=== PATIENT | male | born 1995 | race African-American/Black ===

== ENCOUNTER 2017-01-02 21:16 | Emergency (ER) | payer SELFPAY ==
[~2017-01-02] VITALS: Ht 172.7 cm; Wt 129.5 kg
[~2017-01-02 21:16] MED LIST: DOXY100T PO
[2017-01-02 21:18] VITALS: BP 154/88; PULSE 84; RESP 16; TEMP 98.5; O2SAT 99
[2017-01-03 00:16] VITALS: BP 176/107; PULSE 93; RESP 16; O2SAT 100
[2017-01-03 00:23] VITALS: BP 159/93; PULSE 78; RESP 16; O2SAT 100
--- NOTE | 2017-01-03 00:27 | PD ---
HPI Chief Complaint: Abdominal Pain Time Seen by Provider: 00:22 Travel History International Travel<30 days: No Contact w/Intl Traveler<30days: No Traveled to known affect area: No History of Present Illness HPI The patient is a 21 year old male who presents to the [facility] emergency department with a history of abdominal pain that began on Tuesday. It is in bilateral lower quadrants of the abdomen. It is brought on by eating. It comes on 30-40 minutes after eating. He has intermittent nausea with one episode of vomiting. His last BM was on Tuesday. No blood in the stool. He has pressure with urinating and urinary frequency. He denies any urinary urgency. The patient reports that he is sexually active. He reports that he has been with the same partner for the last 3 years. He denies using condoms. He denies having any penile discharge. He reports that on Tuesday he did have some testicle pain in the back of the left testicle. He denies having any swelling of the scrotum. He reports that yesterday he did notice a bump on the glans of the penis, however it is nonpainful. The patient denies any history of recent fevers, cough, congestion, neck pain, chest pain, shortness of breath, diarrhea , or neurologic symptoms. [facility] Past Medical History Narrative Medical the patient's past medical history is significant for asthma in childhood. Asthma: Yes (CHILDHOOD) Autoimmune Disease: No Blood Disorders: No Anxiety: No Depression: No Cardiovascular Problems: No Diminished Hearing: No Genitourinary: No Musculoskeletal: No Neurologic: No Psychiatric: No Respiratory: No Sickle Cell Disease: No Past Surgical History Narrative Surgical The patient's past surgical history is significant for tonsillectomy and adenoidectomy. Abdominal Surgery: No Cardiac Surgery: No Ear Surgery: No Endocrine Surgery: No Eye Surgery: No Genitourinary Surgery: No Gynecologic Surgery: No Neurologic Surgery: No Oral Surgery: No Thoracic Surgery: No Tonsillectomy: Yes (T&A) Social History Alcohol Use: Yes (rarely) Tobacco Use: No Substance Use: No Allergies-Medications (Allergen,Severity, Reaction): Coded Allergies: cephalexin (Verified Allergy, Intermediate, Hives, 01/02/17) Reported Meds & Prescriptions Reported Meds & Active Scripts Active Ibuprofen 600 Mg Tab 600 Mg PO Q8HR PRN Doxycycline Hyclate 100 Mg Cap 100 Mg PO BID Review of Systems Except as stated in HPI: all other systems reviewed are Neg General / Constitutional: No: Fever Eyes: No: Visual changes HENT: No: Headaches Cardiovascular: No: Chest Pain or Discomfort Respiratory: No: Shortness of Breath Gastrointestinal: Positive: Nausea, Abdominal Pain, No: Vomiting, Diarrhea, Changes in Bowel Habits, Indigestion, Loss of Appetite Genitourinary: Positive: Frequency, Dysuria, No: Urgency Musculoskeletal: No: Pain Skin: Positive Rash Neurologic: No: Weakness Psychiatric: No: Depression Endocrine: No: Polydipsia Hematologic/Lymphatic: No: Easy Bruising Physical Exam Narrative General: The patient is a well-developed well-nourished male in no acute distress. Head and Neck exam: Head is normocephalic atraumatic. Eyes: EOMI, pupils are equal round and reactive to light. Nose: Midline septum with pink mucous membranes Mouth: Dentition unremarkable. Moist mucus membranes. Posterior oropharynx is not erythematous. No tonsillar hypertrophy. Uvula midline. Airway patent. Neck: No palpable lymphadenopathy. No nuchal rigidity. No thyromegaly. Cardiovascular: Regular rate and rhythm without murmurs, gallops, or rubs. Lungs: Clear to auscultation bilaterally. No wheezes, rhonchi, or rales. Abdomen: Soft, with reported tenderness on palpation of the suprapubic area, no other tenderness on palpation of the other quadrants of the abdomen. Normal bowel sounds are audible. No tenderness on palpation of McBurney's point. No guarding, rebound, or rigidity. Negative Egan sign. Extremities: No clubbing, cyanosis, or edema. 2+ pulses in all 4 extremities. No calf tenderness on palpation. Back: No spinous process tenderness to palpation. No costovertebral angle tenderness to palpation. Neurologic Exam: Grossly nonfocal. Skin Exam: No rash noted. Intact skin that is warm and dry. Genital exam: The patient is a circumcised male. With a single area that is approximately 2 mm in greatest dimension a superficial ulceration overlying to dorsal aspect of the glans penis. No penile discharge. No swelling on examination. The patient does however have reported tenderness on palpation overlying the posterior aspect of the left testicle overlying the epididymis. No palpable testicle masses. No palpable hernia. Data Data Last Documented VS Vital Signs Date Time Temp Pulse Resp B/P (MAP) Pulse Ox O2 Delivery O2 Flow Rate FiO2 01/03/17 03:08 01/03/17 00:23 78 16 100 Room Air 01/02/17 21:18 98.5 Orders Orders Complete Blood Count With Diff (01/03/17 00:22) Comprehensive Metabolic Panel (01/03/17 00:22) Urinalysis - C+S If Indicated (01/03/17 00:22) Iv Access Insert/Monitor (01/03/17 00:22) Oxygen Administration (01/03/17:22) Oximetry (01/03/17 00:22) Lipase (01/03/17 00:22) Gc And Chlamydia Pcr (01/03/17 00:25) Ct Abd/Pel W/O Iv Contrast (01/03/17 00:40) Us Testicles W Doppler (01/03/17 00:40) Sodium Chlor 0.9% 1000 Ml Inj (Ns 1000 M (01/03/17 00:45) Ketorolac Inj (Toradol Inj) (01/03/17 00:45) Ondansetron Inj (Zofran Inj) (01/03/17 00:45) Azithromycin Powd Pack (Zithromax Powd P (01/03/17 03:00) Doxycycline (Vibratab) (01/03/17 03:00) Labs Laboratory Tests Test 01/03/17 00:20 01/03/17 00:25 Urine Color YELLOW Urine Turbidity CLEAR Urine pH 5.5 Urine Specific [place] 1.027 Urine Protein TRACE mg/dL Urine Glucose (UA) NEG mg/dL Urine Ketones NEG mg/dL Urine Occult Blood NEG Urine Nitrite NEG Urine Bilirubin NEG Urine Urobilinogen 2.0 MG/DL Urine Leukocyte Esterase NEG Urine RBC LESS THAN 1 /hpf Urine WBC 1 /hpf Urine Mucus FEW /lpf Microscopic Urinalysis Comment CULT NOT INDICATED Chlamydia trachomatis DNA (PCR) NOT DETECTED Neisseria gonorrhoeae DNA (PCR) NOT DETECTED White Blood Count 12.0 TH/MM3 Red Blood Count 5.32 MIL/MM3 Hemoglobin 15.3 GM/DL Hematocrit 46.1 % Mean Corpuscular Volume 86.6 FL Mean Corpuscular Hemoglobin 28.7 PG Mean Corpuscular Hemoglobin Concent 33.2 % Red Cell Distribution Width 13.9 % Platelet Count 300 TH/MM3 Mean Platelet Volume 8.0 FL Neutrophils (%) (Auto) 51.6 % Lymphocytes (%) (Auto) 36.7 % Monocytes (%) (Auto) 8.7 % Eosinophils (%) (Auto) 2.0 % Basophils (%) (Auto) 1.0 % Neutrophils # (Auto) 6.2 TH/MM3 Lymphocytes # (Auto) 4.4 TH/MM3 Monocytes # (Auto) 1.0 TH/MM3 Eosinophils # (Auto) 0.2 TH/MM3 Basophils # (Auto) 0.1 TH/MM3 CBC Comment DIFF FINAL Differential Comment Blood Urea Nitrogen 13 MG/DL Creatinine 1.13 MG/DL Random Glucose 89 MG/DL Total Protein 8.1 GM/DL Albumin 3.9 GM/DL Calcium Level 9.2 MG/DL Alkaline Phosphatase 124 U/L Aspartate Amino Transf (AST/SGOT) 29 U/L Alanine Aminotransferase (ALT/SGPT) 50 U/L Total Bilirubin 0.5 MG/DL Sodium Level 140 MEQ/L Potassium Level 3.8 MEQ/L Chloride Level 106 MEQ/L Carbon Dioxide Level 27.7 MEQ/L Anion Gap 6 MEQ/L Estimat Glomerular Filtration Rate 97 ML/MIN Lipase 103 U/L [facility] Medical Decision Making Medical Screen Exam Complete: Yes Emergency Medical Condition: Yes Medical Record Reviewed: Yes Interpretation(s) Last Impressions Scrotum Ultrasound 01/03/1739 Signed Impressions: Service Date/Time: Tuesday, January 03, 2017 01:01 - CONCLUSION: No evidence of testicular mass or torsion Brennen Gold MD Abdomen/Pelvis CT 01/03/1739 Signed Impressions: Service Date/Time: Tuesday, January 03, 2017 02:03 - CONCLUSION: No acute CT findings in the abdomen or pelvis. Brennen Gold MD Differential Diagnosis Testicular torsion, versus epididymitis, versus gonorrhea, versus chlamydia, versus kidney stone Narrative Course During the course of the patients emergency department visit, the patients history, examination, and differential diagnosis were reviewed with the patient. The patient had IV access obtained and blood work sent for analysis. The patient was placed on a threat monitoring analyst with oximetry and blood pressure monitoring. An ultrasound of the testicles was ordered to rule out torsion, CT scan of the abdomen pelvis was ordered to evaluate for possible underlying kidney stone. The patient was initially provided Toradol 15 mg IV for pain, Zofran 4 mg IV for nausea, normal saline 1 L IV fluid bolus. Given the patient's elevated white blood cell count dysuria with unprotected sex, the patient was given 8 azithromycin 1 g by mouth 1, given his cephalexin allergy the patient was given doxycycline 100 mg by mouth. The patients laboratory studies were reviewed and remarkable for white count is 12, hemoglobin 15.3, platelets 300 with 8.7 monocytes, CMP is remarkable for an alkaline phosphatase of 124, lipase 103, urinalysis is unremarkable. GC and chlamydia are pending. Radiology studies were reviewed and remarkable for an ultrasound of the testicles reveals no evidence of testicular mass or torsion. CT scan of the abdomen and pelvis shows no evidence of stone or other acute abnormality. The patient's symptoms are most consistent with a mild case of epididymitis. The patient will be discharged home with a prescription for doxycycline. Patient is instructed to follow-up with the health Department for additional sexual transmitted infection testing. The patient is resting comfortably and feels better, is alert and in no distress. The patients results and examination findings were discussed with the patient. The repeat examination is unremarkable and benign. The history, exam, diagnostic testing, and current condition do not suggest any significant pathology to warrant further testing, continued ED treatment, admission, or surgical evaluation at this point. The vital signs have been stable. The patient does not have uncontrollable pain, intractable vomiting, or other significant symptoms. The patient's condition is stable and appropriate for discharge. The patient will pursue further outpatient evaluation with a primary care physician or other designated or consulting physician as indicated in the discharge instructions. The patient expressed understanding and was agreeable with this plan. Diagnosis Primary Impression: Epididymitis Referrals: [facility] Dept. 2 days Patient Instructions: Epididymitis (ED), General Instructions Additional Instructions: Follow-up with the [facility] Department for additional sexual transmitted infection testing. Scripts Ibuprofen (Ibuprofen) 600 Mg Tab 600 MG PO Q8HR Y for PAIN, #12 TAB 0 Refills Prov: Rena Allen MD 01/03/17 Doxycycline Hyclate (Doxycycline Hyclate) 100 Mg Cap 100 MG PO BID for Infection, #27 CAP 0 Refills Prov: Rena Allen MD 01/03/17 Disposition: 01 DISCHARGE HOME Condition: Stable Rena Allen MD Jan 03, 2017 00:27
[2017-01-03 00:37] LABS: AUTOMATED NEUTROPHIL # 6.2 TH/MM3 (1.8-7.7); BASOPHIL # 0.1 TH/MM3 (0-0.2); EOSINOPHIL # 0.2 TH/MM3 (0-0.4); HEMATOCRIT 46.1 % (39.0-51.0); HEMO FLAGS DIFF FINAL; LYMPH % 36.7 % (9.0-44.0); LYMPHOCYTE # 4.4 TH/MM3 (1.0-4.8); MEAN CELL VOLUME 86.6 FL (80.0-100.0); MEAN CORPUSCULAR HEMOGLOBIN 28.7 PG (27.0-34.0); MEAN CORPUSCULAR HGB CONC 33.2 % (32.0-36.0); MONO % 8.7 % (0.0-8.0); NEUT % 51.6 % (16.0-70.0); PLATELET COUNT 300 TH/MM3 (150-450); RED BLOOD COUNT 5.32 MIL/MM3 (4.50-5.90); RED CELL DISTRIBUTION WIDTH 13.9 % (11.6-17.2)
[2017-01-03 00:38] LABS: BLOOD, URINE NEG (NEG); COMMENT (UR) CULT NOT INDICATED; CULTURE IF INDICATED CULT NOT INDICATED; GLUCOSE,URINE NEG (NEG); KETONE, URINE NEG (NEG); MUCUS URINE FEW /lpf (OCC); NITRITE,URINE NEG (NEG); PH, URINE 5.5 (5.0-8.5); URINE COLOR YELLOW (YELLW/STRAW)
[2017-01-03] MEDS ORDERED: ONDANSETRON HCL 4 MG/2 ML VIAL IV PUSH ONE (00:45)
[2017-01-03] MEDS ORDERED: KETOROLAC TROMETHAMINE 30 MG/ML (IVP) VIAL IV PUSH ONE (00:45)
[2017-01-03] MEDS ORDERED: SODIUM CHLOR 0.9% 1000 ML INJ 1,000 ML IV ONE (00:45)
[2017-01-03 01:09] LABS: ALKALINE PHOSPHATASE 124 U/L (45-117); TOTAL BILIRUBIN ADULT 0.5 MG/DL (0.2-1.0)
[2017-01-03 01:11] LABS: ALT (GPT) 50 U/L (12-78); ANION GAP 6 MEQ/L (5-15); AST (GOT) 29 U/L (15-37); BICARBONATE 27.7 MEQ/L (21.0-32.0); BLOOD UREA NITROGEN 13 MG/DL (7-18); CHLORIDE 106 MEQ/L (98-107); GLOMERULAR FILTRATION RATE 97 ML/MIN (>89); POTASSIUM 3.8 MEQ/L (3.5-5.1); SODIUM (NA) 140 MEQ/L (136-145)
--- NOTE | 2017-01-03 01:36 | RADRPT ---
EXAM DATE/TIME: 01/03/2017 01:01 [facility] COMPARISON: No previous studies available for comparison. INDICATIONS : Testicular pain. MEDICAL HISTORY : Asthma. Testicular pain. Abdominal pain. SURGICAL HISTORY : Tonsillectomy. ENCOUNTER: Initial ACUITY: 3 days PAIN SCORE: 7/10 LOCATION: Bilateral testicles MEASUREMENTS: RIGHT TESTICLE: 4.7 x 3.8 x x 2.5cm LEFT TESTICLE: 4.5 x 3.0 x 3.3cm FINDINGS: RIGHT TESTICLE: Intact. No evidence of intratesticular mass. Normal color flow and Doppler signal. Small hydrocele. LEFT TESTICLE: Intact. No evidence of intratesticular mass. Normal color flow and Doppler signal. Small hydrocele. T iny epididymal cysts. SCROTUM: Within normal limits. CONCLUSION: No evidence of testicular mass or torsion Brennen Gold MD on January 03, 2017 at 1:32 Board Certified Radiologist. This report was verified electronically.
--- NOTE | 2017-01-03 02:32 | RADRPT ---
EXAM DATE/TIME: 01/03/2017 02:03 [facility] COMPARISON: US TESTICLE W/DOPPLER, January 03, 2017, 1:01. INDICATIONS : Bilateral lower qaudrant pain. ORAL CONTRAST: No oral contrast ingested. RADIATION DOSE: 22.73 CTDIvol (mGy) MEDICAL HISTORY : None SURGICAL HISTORY : None. ENCOUNTER: Initial ACUITY: 1 day PAIN SCALE: 5/10 LOCATION: Bilateral lower quadrant TECHNIQUE: Volumetric scanning of the abdomen and pelvis was performed. Using automated exposure control and ad justment of the mA and/or kV according to patient size, radiation dose was kept as low as reasonably achievable to obtain optimal diagnostic quality images. DICOM format image data is available electro nically for review and comparison. FINDINGS: LOWER LUNGS: The visualized lower lungs are clear. LIVER: Visualized portions normal for what is likely diffuse steatosis. SPLEEN: Normal size without lesion. PANCREAS: Within normal limits. KIDNEYS: Normal in size and shape. There is no mass, stone, or hydronephrosis. ADRENAL GLANDS: Within normal limits. VASCULAR: There is no aortic aneurysm. BOWEL/MESENTERY: The stomach, small bowel, and colon demonstrate no acute abnormality. There is no free intraperitone al air or fluid. ABDOMINAL WALL: Within normal limits. RETROPERITONEUM: There is no lymphadenopathy. BLADDER: No wall thickening or mass. REPRODUCTIVE: Within normal limits. INGUINAL: There is no lymphadenopathy or hernia. MUSCULOSKELETAL: Within normal limits for patient age. CONCLUSION: No acute CT findings in the abdomen or pelvis. Brennen Gold MD on January 03, 2017 at 2:28 Board Certified Radiologist. This report was verified electronically.
[2017-01-03] MEDS ORDERED: DOXY100C PO (02:54)
[2017-01-03] MEDS ORDERED: IBUP-232 PO (02:54)
[2017-01-03 02:58] LABS: CHLAMYDIA PCR NOT DETECTED (NOT DETECT); NEISSERIA PCR NOT DETECTED (NOT DETECT)
[2017-01-03] MEDS ORDERED: AZITHROMYCIN PWD FOR SUSP 1 GM PACKET PO ONE (03:00)
[2017-01-03] MEDS ORDERED: DOXYCYCLINE HYCLATE 100 MG TAB PO ONE (03:00)
== END 2017-01-03 03:19 | disposition home or self-care (01) ==
LOC: NEPC 21:16
DX: N45.1 Epididymitis (principal); R11.2 Nausea with vomiting, unspecified; R35.0 Frequency of micturition
CPT/HCPCS: 74176; 76870; 80053; 81001; 83690; 85025; 87491; 87591; 93975; 96361; 96374; 96375; 99285; J1885; J2405; J7030